=== PATIENT | female | born 1960 | race Caucasian/White ===

== ENCOUNTER 2018-05-05 15:54 | Emergency (ER) | payer OTHER ==
[~2018-05-05] VITALS: Ht 170.2 cm; Wt 102.1 kg
[2018-05-05 16:08] VITALS: BP 151/101
--- NOTE | 2018-05-05 16:24 | PHYS DOC ---
Past History Past Medical History: Depression Additional Past Surgical Histo: rhinoplasty, carpal tunnel and c section Alcohol Use: Rarely Drug Use: Marijuana Adult General Chief Complaint Chief Complaint: KNEE INJURY HPI HPI This is a pleasant 58-year-old female who presents with right knee pain. She doesn't remember any specific injuries to her right knee recently outside of [place] She has pain in her right knee that is sharp shooting and worse with walking. She denies any fevers or rash over the knee. She denies any swelling of the knee. The pain radiates into the hip. Review of systems is negative for chest pain shortness of breath fevers chills. All other review of systems is negative unless otherwise noted in history of present illness. mdm/ ED course: 58-year-old female presenting with right knee pain. X-rays obtained of the knee and hip which were unremarkable. We will refer the patient back to primary care physician in the next 2-3 days with crutches to return if worsening conditions. Patient might need MRI if her symptoms do not improve.The patient has been examined and was not found to have an emergency medical condition. The patient was then discharged home in stable condition to follow up with their primary care physician over the next 2-3 days. They were to return if their symptoms worsened or if they were concerned for any reason. They were also instructed to return to the emergency department if they were unable to get the recommended and appropriate follow-up. [id number] discharge instructions and return precautions were given. Patient's questions were answered to their satisfaction. Patient is comfortable with plan. Review of Systems Review of Systems SEE ABOVE. Allergies Allergies Allergies Coded Allergies Type Severity Reaction Last Updated Verified codeine Allergy Severe 05/05/18 Yes Physical Exam Physical Exam SEE ABOVE Constitutional: Well developed, well nourished, no acute distress, non-toxic appearance. HENT: Normocephalic, atraumatic, bilateral external ears normal, oropharynx moist, no oral exudates, nose normal. [] Eyes: PERRLA, EOMI, conjunctiva normal, no discharge. [] Neck: Normal range of motion, no tenderness, supple, no stridor. Cardiovascular:Heart rate regular rhythm, no murmur Lungs & Thorax: Bilateral breath sounds clear to auscultation [] Abdomen: Bowel sounds normal, soft, no tenderness, no masses, no pulsatile masses. Skin: Warm, dry, no erythema, no rash. [] Back: No tenderness, no CVA tenderness. [] Extremities: The patient's right knee is normal in temperature when compared to contralateral side. There is no effusion appreciated on exam. No erythema. Normal range of motion of the knee. Negative Ngoc sign. Normal posterior and anterior drawer test. Normal Rajat's test. Stable knee joint. No pain with range of motion of the right hip. Palpable pulse distally with 2 second cap refill. Normal motor and sensory function of the right foot. Otherwise unremarkable extremity exams. Neurovascularly intact. Atraumatic. Neurologic: Alert and oriented X 3, normal motor function, normal sensory function, no focal deficits noted. [] Psychologic: Affect normal, judgement normal, mood normal. [] Current Patient Data Vital Signs Vital Signs Date Time Temp Pulse Resp B/P (MAP) Pulse Ox O2 Delivery O2 Flow Rate FiO2 05/05/18 16:08 97.9 82 18 97 Room Air EKG EKG [] Radiology/Procedures Radiology/Procedures [] Course & Med Decision Making Course & Med Decision Making Pertinent Labs and Imaging studies reviewed. (See chart for details) [] Dragon Disclaimer Dragon Disclaimer This electronic medical record was generated, in whole or in part, using a voice recognition dictation system. Departure Departure: Impression: Primary Impression: Right knee pain Disposition: 01 HOME, SELF-CARE Condition: STABLE Referrals: BOB AYON PA-C (PCP) Patient Instructions: Knee Pain, [id number] Additional Instructions: Thank you for allowing us to participate in your care today. Return to the emergency department you have any new or worsening symptoms, or if you are concerned for any reason. Return to emergency department if you have any new or concerning symptoms including but not limited to fever, chills, nausea, vomiting, intractable pain, any new rashes, chest pain, shortness of air , uncontrolled bleeding, difficulty breathing, and/or vision loss. Follow up with your primary care physician within 3 days. Call your Primary Doctor tomorrow and inform them of your visit today. If you do not have a primary care provider we are happy to provide you with a list of our primary care providers contact information. This condition should be evaluated by your primary care physician and any recommended consulting services for continued management within 2-3 days after discharge. If at any time, you are having difficulty getting into your primary care doctor or a specialist, return to the emergency department. Scripts Hydrocodone Bit/Acetaminophen (HYDROCODONE-APAP 5-325 ) 1 Each Tablet 1 TAB PO PRN Q6HRS PRN for PAIN for 5 Days, #5 TAB 0 Refills Caution: this medication can make you drowsy. Do not drive or operate heavy machinery when using this medication. Prov: DEVIN COOPER MD 05/05/18 DEVIN COOPER MD May 05, 2018 16:24
--- NOTE | 2018-05-05 16:39 | RAD ---
EXAM: Right hip and pelvis, 3 views. HISTORY: Pain. COMPARISON: None. FINDINGS: A frontal view of the pelvis and frontal and frog-leg views the right hip are obtained. There is no acute fracture, dislocation or subluxation. There are chronic corticated ossicle superior to the right greater than left greater trochanters. There is degenerative change at the lower lumbar levels, primarily the lumbosacral junction. There is subchondral sclerosis involving the right greater than left sacroiliac joints. IMPRESSION: No acute osseous finding. Electronically signed by: Blanca Chavez MD (05/05/2018 4:36 PM) [place] [id number]
--- NOTE | 2018-05-05 16:40 | RAD ---
EXAM: Right knee, 3 views. HISTORY: Pain. COMPARISON: None. FINDINGS: 3 views of the right knee are obtained. There is mild tricompartmental spurring. There is enthesopathy along the superior patella and anterior tibial tubercle. There is a trace joint effusion. IMPRESSION: 1. No acute osseous finding. 2. Mild tricompartmental osteoarthritis of the right knee with suspected trace effusion. Electronically signed by: Blanca Chavez MD (05/05/2018 4:37 PM) [facility]
[2018-05-05] MEDS ORDERED: HYDR-2758 PO (16:50)
[2018-05-05] MEDS ORDERED: ACETAMINOPHEN 325 MG TABLET PO ONE (17:00)
== END 2018-05-05 17:06 | disposition home or self-care (01) ==
LOC: ER 15:54
DX: M25.561 Pain in right knee (principal); M25.551 Pain in right hip; F32.9 Major depressive disorder, single episode, unspecified; Z88.5 Allergy status to narcotic agent
CPT/HCPCS: 73502; 73562; 99284